=== PATIENT | female | born 1990 | race African-American/Black ===

== ENCOUNTER 2020-03-10 11:52 | Emergency (ER) | payer OTHER, MEDICAID ==
[~2020-03-10] VITALS: Ht 162.6 cm; Wt 73.0 kg
[~2020-03-10 11:52] MED LIST: IBUPROFEN 800800 MG PO; NORCO 5-325 TA1 EACH PO
[2020-03-10] MEDS ORDERED: METFORMIN HCL500 M3 PO (12:05)
[2020-03-10 13:10] VITALS: BP 137/92
== END 2020-03-10 13:10 | disposition home or self-care (01) ==
LOC: M.ERS 11:52
DX: Z20.828 Contact with and (suspected) exposure to other viral communicable diseases (principal); E11.9 Type 2 diabetes mellitus without complications; Z88.2 Allergy status to sulfonamides

== ENCOUNTER 2020-09-30 08:06 | Emergency (ER) | payer OTHER, MEDICAID ==
[~2020-09-30] VITALS: Ht 162.6 cm; Wt 74.8 kg
[~2020-09-30 08:06] MED LIST changes: +METFORMIN HCL500 M3 PO
[2020-09-30] MEDS ORDERED: INDERAL60 MG PO (08:17)
[2020-09-30] MEDS ORDERED: LEVOTHYROXINE112 MC1 PO (08:17)
[2020-09-30] MEDS ORDERED: AUGMENTIN 875-1 EACH PO (08:23)
[2020-09-30 08:28] VITALS: BP 135/73
== END 2020-09-30 08:28 | disposition home or self-care (01) ==
LOC: M.ERS 08:06
DX: H66.92 Otitis media, unspecified, left ear (principal); E11.9 Type 2 diabetes mellitus without complications; Z88.2 Allergy status to sulfonamides

== ENCOUNTER → 2020-12-11 | Outpatient (CLI) | payer OTHER ==
[~2020-12-11] MED LIST changes: +AUGMENTIN 875-1 EACH PO; +INDERAL60 MG PO; +LEVOTHYROXINE112 MC1 PO
== END ==
LOC: M.LAB 13:56
PROVIDERS: ATTEND Specialist
DX: Z20.822 Contact with and (suspected) exposure to COVID-19 (principal)